=== PATIENT | female | born 1950 | race Hispanic/Latino ===

== ENCOUNTER 2025-11-08 23:41 | Emergency (ER) | payer OTHER, MEDICAID ==
[~2025-11-08] VITALS: Ht 152.4 cm; Wt 54.4 kg
[~2025-11-08 23:41] MED LIST: ACET-2743 PO; ASPI-1012 PO; CELE200 PO; OXYC5 PO; PREG25 PO; Polyethylene Glycol 3350 PO
--- NOTE | 2025-11-09 00:16 | NUR ---
PT CARE ASSUMED AT THIS TIME
--- NOTE | 2025-11-09 01:49 | HMCIMG ---
EXAM: CR right Hip, 2 Views. CLINICAL HISTORY: FALL COMPARISON: None provided. FINDINGS: Diffuse osteopenia. Left hip replacement implants. A calcific density in the right hemipelvis could be from any calcified fibroid or fecalith. No evidence of any comminuted or displaced fractures. Due to the rotated appearance of the right femur, it is difficult to rule out any impacted fracture of the neck region. IMPRESSION: Diffuse osteopenia. No evidence of any comminuted or displaced fractures. Due to the rotated appearance of the right femur, it is difficult to rule out any impacted fracture of the neck region. /[place]
--- NOTE | 2025-11-09 01:52 | HMCIMG ---
EXAM: CR right Knee, 3 Views. CLINICAL HISTORY: FALL COMPARISON: None provided. FINDINGS: Displaced and comminuted fractures of the distal femur. Mild fullness of the soft tissue around the knee joint suggests underlying hemarthrosis. Diffuse osteopenia. Degenerative changes in the knee joint. IMPRESSION: Displaced and comminuted fractures of the distal femoral metaphysis with suspected hemarthrosis. Diffuse osteopenia. /[place]
--- NOTE | 2025-11-09 01:55 | ERN ---
General Chief Complaint: Mechanical Fall Stated Complaint: FALL Time Seen by MD: 23:42 Source: patient, family History of Present Illness Initial Comments PATIENT IS A 75-YEAR-OLD FEMALE COMING IN AFTER SHE HAD A FALL. PER FAMILY MEMBERS SHE HAS BEEN TRANSFERRED FOR ONE CT OF THE NECK FELL DOWN LANDING ON HER RIGHT. SHE IS COMPLAINING OF RIGHT LOWER EXTREMITY PAIN STARTING OF THE RIGHT HIP DOWN. SHE IS UNABLE TO BEAR WEIGHT. Allergies: Coded Allergies: No Known Drug Allergies (Unverified Allergy, Unknown, 06/01/17) Home Meds Active Scripts Pregabalin (Lyrica) 25 Mg Cap, 50 MG PO DAILYDINNER, #7 CAP Prov:CHONG GUTIERREZ MD 06/05/17 Oxycodone HCl (Roxicodone) 5 Mg Tab, 5 MG PO Q6H PRN for SEVERE PAIN, #30 TAB Prov:CHONG GUTIERREZ MD 06/05/17 Celecoxib (Celebrex 200Mg Cap) 200 Mg Cap, 200 MG PO DAILY, #7 CAP Prov:CHONG GUTIERREZ MD 06/05/17 Acetaminophen (Tylenol Extra Strength) 500 Mg Tablet, 1000 MG PO Q8H, #30 TAB Prov:CHONG GUTIERREZ MD 06/05/17 Aspirin (ASPIRIN) 325 Mg Tablet, 325 MG PO BID, #40 TAB Prov:CHONG GUTIERREZ MD 06/05/17 [Polyethylene Glycol 3350] 17 GM/PACK POWD.PACK No Conflict Check, 17 GM PO DAILY, #30 0 Refills Prov:LYNDSEY RYDER MD 06/05/17 Past Medical History Past Medical History: Other Medical History Other: POLIO, HLD, LEFT HIP FX Past Surgical History: Unknown ROS Dictation CONSTITUTIONAL: NO CHILLS, NO FEVER, NO WEAKNESS, NO DIAPHORESIS, NO MALAISE. HEAD/FACE: NO SIGNS OF TRAUMA. EENT: NO EYE PAIN, NO BLURRED VISION, NO TEARING, NO DOUBLE VISION, NO EAR PAIN, NO EAR DISCHARGE, NO NOSE PAIN, NO NASAL CONGESTION, NO THROAT PAIN, NO THROAT SWELLING, NO MOUTH PAIN. RESPIRATORY: NO COUGH, NO ORTHOPNEA, NO SOB, NO STRIDOR, NO WHEEZING. CARDIOVASCULAR: NO CHEST PAIN, NO EDEMA, NO PALPITATIONS, NO SYNCOPE. GASTROINTESTINAL/ABDOMINAL: NO ABDOMINAL PAIN, NO CONSTIPATION, NO DIARRHEA, NO NAUSEA, NO VOMITING. GENITOURINARY: NO ABNORMAL DISCHARGE, NO DYSURIA, NO FREQUENT URINATION, NO HEMATURIA. NO COMPLAINTS OF PAIN IN THE GENITALS. MUSCULOSKELETAL: NO BACK PAIN, NO GOUT, JOINT PAIN, NO JOINT SWELLING, MUSCLE PAIN, NO MUSCLE STIFFNESS, NO NECK PAIN. INTEGUMENTARY: NO CHANGE IN COLOR, NO CHANGE IN HAIR/NAILS, NO DRYNESS, NO LESION, NO LUMPS, NO RASH. NEUROLOGICAL/PSYCH: NO ANXIETY, NOT DEPRESSED, NO EMOTIONAL PROBLEM, NO HEA DACHE, NO NUMBNESS, NO PRE-EXISTING DEFICIT, NO HISTORY OF SEIZURES, NO TREMORS, NO WEAKNESS. HEMATOLOGIC/LYMPHATIC: NOT ANEMIC, NO HISTORY OF BLOOD CLOTS, NO APPARENT BLEEDING, NO BRUISING, GLANDS NOT SWOLLEN. ALL SYSTEMS NEGATIVE, EXCEPT NOTED. Physical Exam Physical Exam Dictation VITAL SIGNS: REVIEWED. GENERAL APPEARANCE: ALERT, ORIENTED X3, NO ACUTE DISTRESS, OBESE. HEAD AND FACE: NON-TRAUMATIC. EYES: PERRL, PINK CONJUNCTIVAS, EYELID NO TRAUMA, ANTERIOR CHAMBER CLEAR. EARS: PINNAS INTACT AND NO SIGNS OF TRAUMA OR ERYTHEMA. EAR CANALS CLEAR AND NO DISCHARGE. TMS NO ERYTHEMA. NOSE: NO DISCHARGE, NO BLEEDING. OROPHARYNX: MOUTH NORMAL, TEETH NO CARIES, TONGUE PINK. PHARYNX CLEAR, NO ERYTHEMA. TONSILS NO EXUDATES, NO ABSCESSES NOTED. MUCOUS MEMBRANE MOIST. NECK: SUPPLE, NON-TENDER, NO THYROMEGALY, NO MASSES, NO JVD, NO BRUITS. BREAST: DEFERRED. CHEST: NO TENDERNESS, NO CREPITUS, NO PARADOXICAL MOVEMENT, NO RETRACTIONS. LUNGS: CLEAR, WELL-VENTILATED, SYMMETRIC, NO RALES, NO WHEEZING, NO RHONCHI, NO STRIDOR, GOOD BREATH SOUNDS BILATERALLY. HEART: REGULAR RATE, REGULAR RHYTHM, NO MURMUR, NO GALLOPS. VASCULAR: NO PERIPHERAL EDEMA. ABDOMEN: SOFT, POSITIVE BOWEL SOUNDS, NONDISTENDED, NO GUARDING, NONTENDER, NO REBOUND, NO MASSES NO HEPATOMEGALY, NO SPLENOMEGALY, NO CORTES'S SIGN, NO HERNIAS. RECTAL: DEFERRED. GENITAL: DEFERRED. NEUROLOGICAL: NORMAL SPEECH, GROSS MOTOR FUNCTION INTACT, GROSS SENSORY FUNCTION INTACT. MUSCULOSKELETAL: NECK NONTENDER, FULL RANGE OF MOTION, BACK NONTENDER, FULL RANGE OF MOTION. EXTREMITIES: NONTENDER, FULL RANGE OF MOTION. RIGHT LOWER EXTREMITY PAIN ON PALPATION SKIN: COLOR PINK, DRY, NO TURGOR, NO RASH, NO LACERATIONS, NO ABRASIONS, NO CONTUSIONS. LYMPHATICS: DEFERRED. Results Laboratory and Microbiology Labs Reviewed?: Yes EKG/XRAY/US/CT/MRI X-RAY Comment [place] [address] [address] IMAGING REPORT Signed PATIENT: DEVAN PATIÑO MR#: [id number] : 1950 SEX: F AGE: 75 LOCATION: [facility] ORDER 45 STATUS: REG ER REPORT#: [id number] SERVICE 44 REASON: FALL ORDERING PHYSICIAN: KEILA VELAZQUEZ MD PROCEDURE: HIP U 2V R - HIP UNILAT 2-3VW RIGHT EXAM: CR right Hip, 2 Views. CLINICAL HISTORY: FALL COMPARISON: None provided. FINDINGS: Diffuse osteopenia. Left hip replacement implants. A calcific density in the right hemipelvis could be from any calcified fibroid or fecalith. No evidence of any comminuted or displaced fractures. Due to the rotated appearance of the right femur, it is difficult to rule out any impacted fracture of the neck region. IMPRESSION: Diffuse osteopenia. No evidence of any comminuted or displaced fractures. Due to the rotated appearance of the right femur, it is difficult to rule out any impacted fracture of the neck region. /[place] DICTATED BY: KILLIAN ALBARRAN Jr., MD DATE: 11/09/25248 ELECTRONICALLY SIGNED BY: KILLIAN ALBARRAN Jr., MD DATE: 11/09/25248 [place] [address] [address] IMAGING REPORT Signed PATIENT: DEVAN PATIÑO MR#: [id number] : 1950 SEX: F AGE: 75 LOCATION: [facility] ORDER 45 STATUS: REG ER [facility] REPORT#: [id number] SERVICE 2345 REASON: FALL ORDERING PHYSICIAN: KEILA VELAZQUEZ MD PROCEDURE: KNEE 3V RT - KNEE 3VWS RT EXAM: CR right Knee, 3 Views. CLINICAL HISTORY: FALL COMPARISON: None provided. FINDINGS: Displaced and comminuted fractures of the distal femur. Mild fullness of the soft tissue around the knee joint suggests underlying hemarthrosis. Diffuse osteopenia. Degenerative changes in the knee joint. IMPRESSION: Displaced and comminuted fractures of the distal femoral metaphysis with suspected hemarthrosis. Diffuse osteopenia. /[place] DICTATED BY: KILLIAN ALBARRAN Jr., MD DATE: 11/09/25249 ELECTRONICALLY SIGNED BY: KILLIAN ALBARRAN Jr., MD DATE: 11/09/25249 MDM MDM: DIFFERENTIAL DIAGNOSIS: DISTAL FEMUR FRACTURE, FALL, FEMORAL NECK FRACTURE RATIONALE: TESTS CONSIDERED AND ORDERED SECONDARY TO SHARED DECISION MAKING INCLUDE: PREVIOUS OUTSIDE RECORDS REVIEWED: OLD ER VISITS. RISK OF COMPLICATION AND/OR MORBIDITY OR MORTALITY OF PATIENT MANAGEMENT: NONE MEDICATIONS-PER MEDICATION RECONCILIATION NEED FOR HOSPITALIZATION: PATIENT DOES MEET CRITERIA FOR HOSPITALIZATION. NEED FOR EMERGENCY MAJOR/MINOR SURGERY: NO THERE ARE NO SOCIAL CONCERNS WITH THIS PATIENT. PRESCRIPTION DRUG MANAGEMENT PRESCRIPTIONS WILL INCLUDE SYMPTOMATIC CARE PATIENT'S PRIOR EXTERNAL MEDICAL RECORDS FROM OTHER ER VISITS WERE REVIEWED BY ME INDICATED. PRIOR TESTING AND RESULTS FROM PREVIOUS VISITS WERE REVIEWED. PRIOR TESTS WERE TAKEN INTO ACCOUNT WITH MEDICAL DECISION MAKING AND RESOURCE UTILIZATION, INDEPENDENT HISTORIAN/HISTORIANS WERE USED TO OBTAIN COMPLETE MEDICAL HISTORY. I INDEPENDENTLY INTERPRETED THE TEST THAT WERE PERFORMED, RESULTS WERE REVIEWED BY ME AND CONSIDERED FINDINGS ON RADIOLOGY IF ORDERED. MEDICAL MANAGEMENT AND EXAMINATION INTERPRETATION DISCUSSIONS WERE HAD BY ME WITH OTHER QUALIFIED HEALTHCARE PROFESSIONALS INDICATED FOR THE PATIENT'S CARE. SPOKE TO DR. ESCALONA TRAUMA SURGEON AT [facility] ACCEPTS PATIENT, SPOKE TO REVENUE CYCLE MANAGER DR. HERZOG THE ALSO ACCEPTS PATIENT, SPOKE TO ER MD DR. COON WHO ACCEPTS PATIENT WELL. ED Course Orders Procedure Category Date Status Time Hip Unilat 2-3vw Right RAD 11/08/25 Resulted 23:45 Knee 3vws Rt RAD 11/08/25 Resulted 23:45 Morphine 2mg Syg PHA 11/09/25 Complete (Morphine 2mg Syg) 00:00 Hydromorphone 0.5mg PHA 11/09/25 Complete Syg (Dilaudid 0.5mg 01:00 Current Medications Medications (Trade) Dose Ordered Sig/Serena Route PRN Reason Start Time Stop Time Status Last Admin Dose Admin Hydromorphone HCl (DiLAUDid 0.5MG INJ) 0.5 mg ONCE ONCE IJ 11/09/25 01:00 11/09/25 01:01 DC 11/09/25 00:50 Morphine Sulfate (morPHINE 2MG SYG) 2 mg ONCE ONCE IVP 11/09/25 00:00 11/09/25 00:45 DC Vital Signs Date Time Temp Pulse Resp B/P (MAP) Pulse Ox O2 Delivery O2 Flow Rate FiO2 11/09/25 00:16 98.1 82 16 131/50 100 Room Air* 0 21 11/08/25 23:42 98.1 57 16 129/70 97 Room Air 0 DX & DISP Disposition: Transfer Decision to Admit Time: 02:18 Departure Impression: Primary Impression: Fracture, femur, distal Condition: Stable Referrals: SELF,REFERRAL (PCP) KEILA VELAZQUEZ MD Nov 09, 2025 01:55
--- NOTE | 2025-11-09 02:46 | NUR ---
RIGHT POSTERIOR LONG LEG SPLINT PLACED VERBALLY ORDERED BY ED MD VELAZQUEZ. PT TOLERATED PROCEDURE WELL. DISTAL PULSE NOTED. PT DENIES DISCOMFORT AT THIS TIME.
--- NOTE | 2025-11-09 03:27 | NUR ---
REPORT GIVEN TO ROHIT HOUSTON AT [facility] ER
--- NOTE | 2025-11-09 03:53 | NUR ---
EMS ARRIVED TO [facility] AT THIS TIME
[2025-11-09 03:55] VITALS: BP 116/47; PULSE 84; RESP 15; TEMP 98.1; O2SAT 98
--- NOTE | 2025-11-09 03:59 | NUR ---
EMS LEFT [facility] [place] [facility] AT THIS TIME. PENDING ARRIVAL TO [facility]. PT SHOWS NO SIGNS OF DISTRESS.
== END 2025-11-09 03:59 | disposition short-term general hospital (02) ==
LOC: EDH 23:41
DX: S72.491A Other fracture of lower end of right femur, initial encounter for closed fracture (principal); E78.5 Hyperlipidemia, unspecified; Z79.1 Long term (current) use of non-steroidal anti-inflammatories (NSAID); Z79.82 Long term (current) use of aspirin; W18.39XA Other fall on same level, initial encounter; Y93.89 Activity, other specified; Y92.89 Other specified places as the place of occurrence of the external cause; Y99.8 Other external cause status
CPT/HCPCS: 99285; 73502; 73562; 29505; 96372; J1171; 99284